=== PATIENT | male | born 1975 | race Caucasian/White ===

== ENCOUNTER 2023-01-09 20:52 | Emergency (ER) | payer SELFPAY ==
[~2023-01-09] VITALS: Ht 170.2 cm; Wt 88.5 kg
[2023-01-09 20:55] VITALS: BP 121/80; PULSE 123; RESP 24; O2SAT 97
[2023-01-09 21:20] VITALS: BP 121/80; PULSE 123; RESP 24; O2SAT 97
--- NOTE | 2023-01-09 21:20 | NUR ---
Seen and evaluated by ER Dr. Baker
--- NOTE | 2023-01-09 21:21 | NUR ---
Patient discharged with v/s stable. Written and verbal after care instructions given and explained. Patient verbalized understanding. Police with steady gait. All questions addressed prior to discharge. Advised to follow up with PMD.
== END 2023-01-09 21:21 ==
LOC: MED 20:52
DX: Z02.89 Encounter for other administrative examinations (principal); R07.89 Other chest pain; V89.2XXA Person injured in unspecified motor-vehicle accident, traffic, initial encounter; Y93.89 Activity, other specified; Y92.410 Unspecified street and highway as the place of occurrence of the external cause; Y99.8 Other external cause status
CPT/HCPCS: 99283